=== PATIENT | female | born 1975 | race Caucasian/White ===

== ENCOUNTER 2019-02-17 06:04 | Day surgery (SDC) | payer OTHER ==
[~2019-02-17 06:04] MED LIST: Dextrose 5%-0.45% NaCl 1,000 ML IV SCH; Sodium Chloride 0.9% 10 ML Syringe FLUSH PRN
[2019-02-17] MEDS ORDERED: fentaNYL 100 MCG/2 ML SDV IV ONE ×7 (06:05→07:10)
[2019-02-17] MEDS ORDERED: Midazolam 1 MG/ML 2 ML SDV IV ONE ×9 (06:05→07:16)
[2019-02-17] MEDS ORDERED: Midazolam 1 MG/ML 2 ML SDV ONE ×2 (06:22→07:14)
[2019-02-17] MEDS ORDERED: fentaNYL 100 MCG/2 ML SDV ONE ×2 (06:22→07:17)
[2019-02-17] MEDS ORDERED: Sodium Chloride 0.9% 10 ML Syringe FLUSH PRN ×3 (06:30→07:00)
[2019-02-17] MEDS ORDERED: Dextrose 5%-0.45% NaCl 1,000 ML IV SCH ×2 (06:30→07:00)
--- NOTE | 2019-02-17 14:20 | OR ---
DATE: 02/17/2019 PROCEDURE DETAILS: Shuttled stools, total colonoscopy, and multiple pinch biopsies. INSTRUMENT USED: PCF-H190DL Olympus video colonoscope. PREMEDICATIONS: Fentanyl 200 mcg intravenous, Versed 5 mg intravenous. The procedure was done under pulse oximetry, BP recording, and desk monitor. INDICATION: The patient with longstanding ulcerative colitis. Surveillance colonoscopic examination is done for detection of any polypoid lesions and removal, biopsies to be obtained for any evidence of dysplasia, endoscopic hemostasis therapy if needed. DESCRIPTION OF PROCEDURE: Initial rectal exam was unremarkable. Rigid anoscopy was normal. The colonoscope was passed with ease. Photographs were taken of the normal appearing rectum. The scope was passed with ease up to the ileocecal area, photographs were taken of the normal appearing cecum identified by double-bulged ileocecal folds. No bleeding was noted from any of the visualized areas at the commencement of the examination. The bowel preparation was found to be adequate, [place] scale 2. No stricture. No vascular ectasia. No large isolated ulcerations seen. No evidence of diffuse inflammatory bowel disease in the form of friability, contact bleeding, or ulcerations. No polyp or tumor mass identified. Probing the proximal sides of folds and flexures using adequate distention and clearing up the stool material, withdrawal of the scope was made. Four-quadrant biopsies were taken at 10 cm distance apart from the cecum to the rectum, biopsies obtained but pooled into bags: 1. Cecum and ascending colon. 2. Transverse colon. 3. Descending colon. 4. Rectosigmoid. No bleeding was noted from any of the visualized areas at the completion of examination. IMPRESSION: Ulcerative colitis. The patient tolerated the procedure well. [facility] /[id number]
== END 2019-02-17 09:14 | disposition home or self-care (01) ==
LOC: DL.ENDO 06:04
PROVIDERS: ATTEND Internal Medicine Gastroenterology
DX: Z12.11 Encounter for screening for malignant neoplasm of colon (principal); K51.90 Ulcerative colitis, unspecified, without complications; Z88.2 Allergy status to sulfonamides; Z88.6 Allergy status to analgesic agent
CPT/HCPCS: 45380; J2250; J3010; J7042

== ENCOUNTER 2020-11-26 05:51 | Day surgery (SDC) | payer BC, OTHER ==
[2020-11-26] MEDS ORDERED: fentaNYL 100 MCG/2 ML SDV IV ONE ×3 (05:52→07:06)
[2020-11-26] MEDS ORDERED: Midazolam 1 MG/ML 2 ML SDV IV ONE ×6 (05:52→07:12)
[2020-11-26] MEDS ORDERED: Midazolam 1 MG/ML 2 ML SDV ONE (06:13)
[2020-11-26] MEDS ORDERED: fentaNYL 100 MCG/2 ML SDV ONE (06:13)
--- NOTE | 2020-11-26 08:08 | OR ---
DATE: 11/26/2020 PROCEDURES: Incomplete colonoscopy and multiple pinch biopsies. INSTRUMENT USED: PCF-H190DL Olympus video colonoscope. PREMEDICATIONS: Fentanyl 100 mcg intravenous, Versed 3 mg intravenous, nasal O2 cannula. The procedure was done under pulse oximetry, BP recording, and production line. INDICATION: The patient with longstanding ulcerative colitis on therapy with recent rectal bleeding as well as diarrhea. Colonoscopic examination is done for detection of any polypoid lesions and removal, assessment of activity of ulcerative colitis and biopsies to be obtained for dysplasia if indicated, endoscopic hemostasis therapy if needed. DESCRIPTION OF PROCEDURE: Initial rectal exam was unremarkable. Rigid anoscopy showed distal rectal mucosa with erythema, contact bleeding, as well as superficial ulcers. Colonoscope was passed with ease up to distal descending colon, photographs were taken of the rectosigmoid area with contact bleeding, friability, as well as ulcerations consistent with active ulcerative colitis. No proximal examination done due to active inflammation and inability to obtain biopsies for dysplasia. No stricture. No vascular ectasia. No large isolated ulcerations seen. No polyp or tumor mass identified. Multiple pinch biopsies were taken of the rectum and sigmoid areas and sent for histopathology. Photographs were taken of the rectosigmoid area. No bleeding was noted from any of the visualized areas at the completion of examination. IMPRESSION: Ulcerative colitis. The patient tolerated the procedure well. [facility] /[id number]
== END 2020-11-26 09:22 | disposition home or self-care (01) ==
LOC: DL.ENDO 05:51
PROVIDERS: ATTEND Internal Medicine Gastroenterology
DX: K51.911 Ulcerative colitis, unspecified with rectal bleeding (principal)
CPT/HCPCS: 45380; 81025; J2250; J3010; J7042

== ENCOUNTER 2020-12-11 08:08 | Emergency (ER) | payer BC ==
--- NOTE | 2020-12-11 08:14 | EDM.PDOC ---
ED HPI GENERAL MEDICAL PROBLEM - General Chief Complaint: Lower Extremity Injury/Pain Stated Complaint: FELL, RIGHT KNEE INJURY Time Seen by Provider: 12/11/20 08:13 Source of Information: Reports: Patient, Old Records, RN, RN Notes Reviewed History Limitations: Reports: No Limitations - History of Present Illness INITIAL COMMENTS - FREE TEXT/NARRATIVE: Pt presents to ER from home by POV with c/o of a ground level fall from slipping on ice at home and injuring the right knee. Pt reports most of the pain is to the medial aspect of the knee. She admits to some soreness at the right hip, but feels it is only a minor bruise. The knee is acutely painful. She rates the pain 10/10. Nothing alleviates the pain. Palpation or attempted ROM aggravates the pain. Denies hitting her head. Onset: Today, Sudden Duration: Constant Location: Reports: Lower Extremity, Right Quality: Reports: Ache Severity: Severe Associated Symptoms: Reports: No Other Symptoms - Related Data Allergies Allergy/AdvReac Type Severity Reaction Status Date / Time ibuprofen Allergy Bleeding Verified 11/25/20 13:42 Sulfa (Sulfonamide Allergy Jaundice Verified 11/25/20 13:42 Antibiotics) Home Meds: Home Meds Adalimumab [Humira(Cf) Pen] 40 mg SQ WEEKLY 02/16/19 [History] Ergocalciferol (Vitamin D2) [Vitamin D2] 400 unit PO DAILY 02/16/19 [History] Lysine HCl [l-Lysine] 500 mg PO DAILY 02/16/19 [History] Multivitamin with Minerals [Multivitamins with Minerals] 1 each PO DAILY 02/16/19 [History] Acetaminophen [Tylenol Extra Strength] 1,000 mg PO ASDIRECTED PRN 11/25/20 [History] FLUoxetine HCl [Fluoxetine HCl] 60 mg PO DAILY 11/25/20 [History] FLUoxetine HCl [Prozac] 20 mg PO ASDIRECTED 11/25/20 [History] Melatonin 3 mg PO BEDTIME 11/25/20 [History] Vitamin E 400 units PO DAILY 11/25/20 [History] predniSONE [Prednisone] 20 mg PO DAILY 12/11/20 [History] Past Medical History HEENT History: Reports: Epistaxis Cardiovascular History: Reports: None Respiratory History: Reports: None Gastrointestinal History: Reports: Colon Polyp, Other (See Below) Other Gastrointestinal History: Ulcerative colitis Genitourinary History: Reports: None LIME BOILER History: Reports: Other (See Below) Other LIME BOILER History: Esure procedure Musculoskeletal History: Reports: Arthritis, Back Pain, Chronic Neurological History: Reports: Migraines Psychiatric History: Reports: Anxiety, Depression, PTSD Endocrine/Metabolic History: Reports: None Hematologic History: Reports: Anemia Immunologic History: Reports: None Oncologic (Cancer) History: Reports: Basal Cell Carcinoma, Other (See Below) Other Oncologic History: skin cancer Dermatologic History: Reports: Other (See Below) Other Dermatologic History: Recent dx of skin cancer - Infectious Disease History Infectious Disease History: Reports: Chicken Pox - Past Surgical History HEENT Surgical History: Reports: None Cardiovascular Surgical History: Reports: None Respiratory Surgical History: Reports: None GI Surgical History: Reports: Colonoscopy, Polypectomy Female Surgical History: Reports: Section, Tubal Ligation Endocrine Surgical History: Reports: None Neurological Surgical History: Reports: None Musculoskeletal Surgical History: Reports: Shoulder Surgery Other Musculoskeletal Surgeries/Procedures:: Right shoulder chromian plasty. Right ring finger severed tendon repair Oncologic Surgical History: Reports: None Social & Family History - Family History Family Medical History: No Pertinent Family History - Caffeine Use Caffeine Use: Reports: Soda, Tea Other Caffeine Use: daniel lemonade - Living Situation & Occupation Living situation: Reports: with Family Review of Systems - Review of Systems Review Of Systems: Comprehensive ROS is negative, except as noted in HPI. ED EXAM, GENERAL - Physical Exam Exam: See Below Exam Limited By: No Limitations General Appearance: Alert, Anxious, Mild Distress (Due to right knee pain) Nose: No Blood Throat/Mouth: Normal Voice, No Airway Compromise Head: Atraumatic, Normocephalic Neck: Normal Inspection, Non-Tender, Full Range of Motion Respiratory/Chest: No Respiratory Distress Cardiovascular: Normal Peripheral Pulses Extremities: Normal Capillary Refill, Limited Range of Motion (Right knee with generalized tenderness, acutely tender at medial knee, no visible swelling, bruising, or deformity. Unable to assess with Jamel or Drawer due to pain.) Neurological: Alert, Oriented, No Motor/Sensory Deficits Psychiatric: Normal Affect, Normal Mood Skin Exam: Warm, Dry, Intact, Normal Color, No Rash ED TRAUMA EXTREMITY PROCEDURES - Splinting Right Lower Extremity Splint Site: Right knee Pre-Procedure NV Status: Normal Post-Procedure NV Status: Normal Splint Material: Velcro Splint Design: Knee Immobilizer Applied & Form Fitted By: Nurse Provider Post-Splint Application NV Check: NV Status Normal, Good Position Complications: No Course - Vital Signs Last Recorded V/S: Last Vital Signs Temp 98.9 F 12/11/20 08:18 Pulse 95 12/11/20 08:18 Resp 16 12/11/20 08:18 BP 124/69 12/11/20 08:18 Pulse Ox 100 12/11/20 08:18 - Orders/Labs/Meds Orders: Active Orders 24 hr Category Date Time Status Immobilizer [RC] ASDIRECTED Care 12/11/20 08:38 Ordered Knee 3V Rt [CR] Urgent Exams 12/11/20 08:10 Taken DME for Discharge [COMM] Routine Oth 12/11/20 08:39 Ordered Meds: Medications Discontinued Medications Generic Name Dose Route Start Last Admin Trade Name Freq PRN Reason Stop Dose Admin Hydrocodone Bitart/Acetaminophen 1 tab 12/11/20 08:21 12/11/20 08:35 [place] 325-10 Mg PO 12/11/20 08:22 1 tab ONETIME ONE Administration - Radiology Interpretation Free Text/Narrative:: [facility] Final Radiology Report Call: [phone] assistance Online chat: [email or web address] Name: JASEN DE LA CRUZ Age: 45Years F Date: 12/11/2020 SSN: -- : [id number] Study: CR KNEE 3V RT Requesting Physician: JEANNA RAMIREZ Images: 3 Addl Studies: Provided Clinical History: fall on the ice Contrast: Contrast Medium: Contrast Amount: Contrast Method: CONFIDENTIALITY STATEMENT This report is intended only for use by the referring physician, and only in accordance with law. If you received this in error, call [phone]. Page 1 of 1 PROCEDURE INFORMATION: Exam: XR Right Knee Exam date and time: 12/11/2020 8:18 AM Age: 45 years old Clinical indication: Pain; Knee; Right; Additional info: Fall on the ice TECHNIQUE: Imaging protocol: XR Right knee. Views: Frontal, lateral, and patellar views. COMPARISON: No relevant prior studies available. FINDINGS: Bones/joints: Moderate knee joint effusion. No acute bony abnormality identified. Soft tissues: Normal. IMPRESSION: 1. Moderate knee joint effusion. 2. No acute bony injury identified. Thank you for allowing us to participate in the care of your patient. Dictated and Authenticated by: Manav Guo MD 12/11/2020 8:50 AM Central Time ([place] & [place]) Departure - Departure Time of Disposition: 08:39 Disposition: Home, Self-Care 01 Condition: Good Clinical Impression: Effusion of right knee Right knee injury Qualifiers: Encounter type: initial encounter Qualified Code(s): S89.91XA - Unspecified injury of right lower leg, initial encounter - Discharge Information *PRESCRIPTION DRUG MONITORING PROGRAM REVIEWED*: No *COPY OF PRESCRIPTION DRUG MONITORING REPORT IN PATIENT SCOTT: No Instructions: Acute Knee Pain, Adult, Knee Effusion Forms: ED Department Discharge Additional Instructions: Rx: Hydrocodone APAP 5mg/325mg *Do not drive or work while under the influence of this medication. Rest, ice pack, and elevate right knee. Use crutches and knee immobilizer as needed for comfort for 7 to 10 days. Follow up in clinic in one week for recheck and referral to orthopedic surgeon if needed. Sepsis Event Note (ED) - Focused Exam Vital Signs: Vital Signs Temp Pulse Resp BP Pulse Ox 12/11/20 08:18 98.9 F 95 16 124/69 100 - My Orders Last 24 Hours: My Active Orders 12/11/20 08:10 Knee 3V Rt [CR] Urgent 12/11/20 08:38 Immobilizer [RC] ASDIRECTED 12/11/20 08:39 DME for Discharge [COMM] Routine - Assessment/Plan Last 24 Hours: My Active Orders 12/11/20 08:10 Knee 3V Rt [CR] Urgent 12/11/20 08:38 Immobilizer [RC] ASDIRECTED 12/11/20 08:39 DME for Discharge [COMM] Routine
[2020-12-11] MEDS ORDERED: Acetaminophen/HYDROcodone 325-10 MG Tab PO ONE (08:21)
--- NOTE | 2020-12-11 08:50 | CR ---
PROCEDURE INFORMATION: Exam: XR Right Knee Exam date and time: 12/11/2020 8:18 AM Age: 45 years old Clinical indication: Pain; Knee; Right; Additional info: Fall on the ice TECHNIQUE: Imaging protocol: XR Right knee. Views: Frontal, lateral, and patellar views. COMPARISON: No relevant prior studies available. FINDINGS: Bones/joints: Moderate knee joint effusion. No acute bony abnormality identified. Soft tissues: Normal. IMPRESSION: 1. Moderate knee joint effusion. 2. No acute bony injury identified.
== END 2020-12-11 08:57 | disposition home or self-care (01) ==
LOC: DL.ED 08:08
DX: S89.91XA Unspecified injury of right lower leg, initial encounter (principal); M25.461 Effusion, right knee; Z88.6 Allergy status to analgesic agent; Z88.2 Allergy status to sulfonamides; W00.0XXA Fall on same level due to ice and snow, initial encounter; Y92.009 Unspecified place in unspecified non-institutional (private) residence as the place of occurrence of the external cause
CPT/HCPCS: 73562; 99283; A9270

== ENCOUNTER 2021-07-22 06:19 | Day surgery (SDC) | payer BC ==
[~2021-07-22 06:19] MED LIST changes: +Midazolam 1 MG/ML 2 ML SDV ONE; +fentaNYL 100 MCG/2 ML SDV ONE
[2021-07-22] MEDS ORDERED: Midazolam 1 MG/ML 2 ML SDV IV ONE ×8 (06:20→08:09)
[2021-07-22] MEDS ORDERED: fentaNYL 100 MCG/2 ML SDV IV ONE ×7 (06:20→08:07)
--- NOTE | 2021-07-22 13:50 | OR ---
DATE: 07/22/2021 PROCEDURES: Total colonoscopy, narrow-band imaging, and multiple pinch biopsies. INSTRUMENT USED: PCF-H190DL Olympus video colonoscope. PREMEDICATIONS: Fentanyl 200 mcg intravenous, Versed 5 mg intravenous. The procedure was done under pulse oximetry, BP recording, and media monitor. INDICATION: The patient with longstanding ulcerative colitis and recent relapse of the disease, treated. Colonoscopic examination is done for assessment of mucosal healing and if no inflammation, to proceed with biopsies of dysplasia, endoscopic hemostasis therapy if needed. DESCRIPTION OF PROCEDURE: Initial rectal exam was unremarkable. Rigid anoscopy was normal. The colonoscope was passed with ease up to the ileocecal area. NBI views were obtained. Photographs were taken of the rectum, sigmoid, as well as cecum. The scope was passed with ease. No bleeding was noted from any of the visualized areas at the commencement of the examination. The bowel preparation was found to be adequate. [place] scale 2 in right and left colon, 3 in transverse colon, total score 7. No stricture. No vascular ectasia. No large isolated ulcerations seen. No isolated large ulcers identified. No friability, contact bleeding, or superficial ulcerations noted. Probing the proximal sides of folds and flexures using adequate distention and clearing of the stool material, withdrawal of the scope was made. Four-quadrant biopsies were taken at 10 cm distance apart from the cecum to rectum, tissues obtained were pooled into bags, #1 cecum and ascending colon, #2 transverse colon, #3 descending colon, and #4 rectosigmoid. No bleeding was noted from any of the visualized areas at the completion of examination. IMPRESSION: Ulcerative colitis. The patient tolerated the procedure well. [facility] /[id number]
== END 2021-07-23 10:15 | disposition home or self-care (01) ==
LOC: DL.ENDO 06:19
PROVIDERS: ATTEND Internal Medicine Gastroenterology
DX: K51.90 Ulcerative colitis, unspecified, without complications (principal); K63.89 Other specified diseases of intestine
CPT/HCPCS: 45380; J2250; J3010; J7042